=== PATIENT | female | born 1965 | race African-American/Black ===

== ENCOUNTER 2016-04-01 08:15 | Emergency (ER) | payer OTHER ==
[~2016-04-01] VITALS: Ht 149.9 cm; Wt 59.0 kg
[~2016-04-01 08:15] MED LIST: ACETAMINOPHEN-1 EAC1; ACETAMINOPHEN-1 EAC1 PO; AMOX TR-K CLV1 EAC3 PO; AMOXICILLIN 50500 M1 PO; AUGMENTIN 500-1 EACH PO; CARDURA2 MG PO; CARDURA4 MG PO; CARVEDILOL12.5 MG PO; CIPRO250 M1 PO; CIPRO250 MG PO; CIPROFLOXACIN500 M1 PO; DIFLUCAN150 MG PO; HUMALOG100 UNIT/1 SUBQ; HYDROCODON-ACE1 EAC7 PO; HYDROCODON-ACE1 EACH PO; INVANZ 1GM/NS 101 GM IV; KEFLEX500 MG PO; LANTUS SC; LANTUS SUBQ; LISINOPRIL20 MG PO; LISINOPRIL40 MG PO; LORTAB 5 MG/5001 TAB PO; MACROBID 100 M100 M1 PO; METOCLOPRAMIDE10 MG PO; NORCO 5-325 TA1 EACH PO; NOVOLIN R100 UNIT/3 IJ; NOVOLOG100 UNIT/1; ONDANSETRON HCL4 M2 PO; PAIN & FEVER325 MG PO; PHENERGAN 25 MG25 M1 PO; REGLAN 5 MG TAB5 M1 PO; RENVELA800 MG PO; SENSIPAR 30 MG30 M1 PO; SODIUM BICARBO650 M3 PO; TRAMADOL 50 MG50 MG PO; TUMS PO; ZESTRIL; ZESTRIL10 MG PO; ZOFRAN 4 MG ORAL4 M1 DIS; ZOFRAN ODT4 MG PO; [UNRECOGNIZED DRUG - CODE]
[2016-04-01] MEDS ORDERED: CARVEDILOL25 MG PO (08:26)
[2016-04-01] MEDS ORDERED: SENSIPAR 30 MG30 M1 PO (08:26)
[2016-04-01] MEDS ORDERED: IBUPROFEN 200200 M1 PO (08:28)
[2016-04-01 08:53] LABS: ABSOLUTE NEUTROPHILS 5.3 thou/uL (1.4-8.2); BASOPHILS 0.8 % (0.0-2.0); EOSINOPHILS 1.7 % (0.0-3.0); HEMATOCRIT 31.7 % (37.0-47.0); HEMOGLOBIN 10.6 gm/dL (12.0-15.0); LYMPHOCYTES 10.5 % (24.0-44.0); MCH 28.8 pg (26.0-34.0); MCHC 33.4 % (28.0-37.0); MCV 86.3 fL (80.0-100.0); MONOCYTES 10.5 % (1.0-8.0); PLATELET COUNT 138 thou/uL (150-400); POLYS 76.5 % (36.0-66.0); RBC 3.67 mil/uL (4.20-5.00); RDW 15.8 % (10.5-14.5)
[2016-04-01 09:01] LABS: CALCIUM 8.3 mg/dL (8.5-10.1); CREATININE 13.7 mg/dL (0.6-1.3); MANUAL DIFF NO
== END 2016-04-01 12:25 | disposition home or self-care (01) ==
LOC: ER 08:15
PROVIDERS: Emergency Medicine
DX: R11.2 Nausea with vomiting, unspecified (principal); E11.9 Type 2 diabetes mellitus without complications; I12.0 Hypertensive chronic kidney disease with stage 5 chronic kidney disease or end stage renal disease; N18.6 End stage renal disease; Z99.2 Dependence on renal dialysis; Z88.1 Allergy status to other antibiotic agents; Z88.8 Allergy status to other drugs, medicaments and biological substances

== ENCOUNTER 2017-07-03 13:49 | Emergency (ER) | payer OTHER ==
[~2017-07-03] VITALS: Ht 157.5 cm; Wt 68.0 kg
[~2017-07-03 13:49] MED LIST changes: +CARVEDILOL25 MG PO; +COREG12.5 MG PO; +FOSRENOL500 MG PO; +IBUPROFEN 200200 M1 PO; +KEFLEX500 M1 PO
[2017-07-03 15:48] LABS: ABSOLUTE NEUTROPHILS 5.9 thou/uL (1.4-8.2); BASOPHILS 0.7 % (0.0-2.0); EOSINOPHILS 2.7 % (0.0-3.0); HEMATOCRIT 37.1 % (37.0-47.0); HEMOGLOBIN 12.3 gm/dL (12.0-15.0); LYMPHOCYTES 16.7 % (24.0-44.0); MCHC 33.1 g/dL (28.0-37.0); MCV 84.6 fL (80.0-100.0); MONOCYTES 10.4 % (1.0-8.0); PLATELET COUNT 193 thou/uL (150-400); POLYS 69.5 % (36.0-66.0); RBC 4.38 mil/uL (4.20-5.00); WBC 8.5 thou/uL (4.0-11.0)
[2017-07-03 15:55] LABS: CALCIUM 8.4 mg/dL (8.5-10.1); CREATININE 7.4 mg/dL (0.6-1.0); POTASSIUM 4.1 mmol/L (3.5-5.1)
[2017-07-03] MEDS ORDERED: PHENERGAN 25 MG25 M1 PO (16:38)
[2017-07-05] MEDS ORDERED: RENVELA800 MG PO (11:53)
[2017-07-05] MEDS ORDERED: PRINIVIL20 MG PO (11:54)
[2017-07-05] MEDS ORDERED: COREG25 MG PO (11:54)
[2017-07-05] MEDS ORDERED: HUMALOG100 UNIT/1 SUBQ (11:54)
[2017-07-05] MEDS ORDERED: LANTUS100 UNIT/M SUBQ (11:54)
[2017-07-05] MEDS ORDERED: ARIMIDEX PO (18:41)
[2017-07-07] MEDS ORDERED: LANTUS100 UNIT/M SUBQ (10:40)
== END 2017-07-03 17:04 | disposition home or self-care (01) ==
LOC: ER 13:49
PROVIDERS: Physician Assistant
DX: R19.7 Diarrhea, unspecified (principal); E11.9 Type 2 diabetes mellitus without complications; I10 Essential (primary) hypertension; Z79.4 Long term (current) use of insulin; Z88.8 Allergy status to other drugs, medicaments and biological substances; Z88.2 Allergy status to sulfonamides

== ENCOUNTER 2017-07-09 11:56 | Emergency (ER) | payer OTHER ==
[~2017-07-09] VITALS: Ht 149.9 cm; Wt 80.3 kg
[~2017-07-09 11:56] MED LIST changes: +ARIMIDEX PO; +COREG25 MG PO; +LANTUS100 UNIT/M SUBQ; +PRINIVIL20 MG PO
[2017-07-09 13:15] LABS: BASOPHILS 0.8 % (0.0-2.0); EOSINOPHILS 2.6 % (0.0-3.0); HEMOGLOBIN 14.1 gm/dL (12.0-15.0); LYMPHOCYTES 16.1 % (24.0-44.0); MCH 27.4 pg (26.0-34.0); MCHC 32.9 g/dL (28.0-37.0); MCV 83.3 fL (80.0-100.0); MONOCYTES 9.8 % (1.0-8.0); PLATELET COUNT 175 thou/uL (150-400); POLYS 70.7 % (36.0-66.0); RBC 5.17 mil/uL (4.20-5.00); RDW 16.7 % (10.5-14.5); WBC 8.5 thou/uL (4.0-11.0)
[2017-07-09 13:24] LABS: ANION GAP 11 mmol/L (7-16); BUN 40 mg/dL (7-18); CALCIUM 8.9 mg/dL (8.5-10.1); CHLORIDE 100 mmol/L (98-107); CO2 29 mmol/L (21-32); GLUCOSE 134 mg/dL (74-106); POTASSIUM 4.3 mmol/L (3.5-5.1); SODIUM 140 mmol/L (136-145)
[2017-07-09 13:26] LABS: CREATININE 8.5 mg/dL (0.6-1.0)
[2017-07-09 13:32] LABS: ALBUMIN 3.7 g/dL (3.4-5.0); SGOT 16 U/L (15-37); SGPT 18 U/L (30-65); TOTAL BILIRUBIN 0.7 mg/dL (<0.1-1.0); TOTAL PROTEIN 8.7 g/dL (6.4-8.2); TROPONIN-I < 0.04 ng/mL (<0.06)
== END 2017-07-09 14:01 | disposition home or self-care (01) ==
LOC: ER 11:56
PROVIDERS: Nurse Practitioner
DX: E11.649 Type 2 diabetes mellitus with hypoglycemia without coma (principal); I10 Essential (primary) hypertension; Z99.2 Dependence on renal dialysis; Z88.2 Allergy status to sulfonamides

== ENCOUNTER 2018-04-06 03:15 | Inpatient (IN) | payer OTHER ==
[~2018-04-06] VITALS: Ht 149.9 cm; Wt 59.4 kg
--- NOTE | ~2018-04-06 | HC ---
[facility] [place] [address] CONSULTATION Name: TUYET CANO Room #: 352-P ADM IN M.R.#: [id number] Admission: 04/06/18 Attend Phys: Ottoniel Bradford MD Discharge: Date of : 67 Report #: [id number] THIS REPORT FOR: //name// CC: Ottoniel Johnson REASON FOR CONSULTATION: End-stage renal disease. REASON FOR PRESENTATION: Hypoglycemia. HISTORY OF PRESENT ILLNESS: A 52-year-old with past medical history of diabetes mellitus, hypertension, end-stage renal disease, status post cystectomy, ileal conduit. She is maintained on hemodialysis every Thursday, Thursday and Thursday. Her blood sugar was in the 300 range yesterday and she took 4 units of Levemir insulin 4 units of short-acting insulin. She then started to have issues with hypoglycemia. Blood sugar was reported to be 42. She is followed by an fisher weir and was asked recently to increase the dose of her insulin. She was hypothermic on her arrival. She also reported to persistent diarrhea in the last few days. She denies fever or chills. I am being consulted to manage her end-stage renal disease. PAST MEDICAL HISTORY: 1. End-stage renal disease, maintained on hemodialysis every Thursday, Thursday and Thursday. 2. Status post cystectomy. 3. Status post ileal conduit. 4. Diabetes mellitus. 5. Hypertension. 6. 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 7. AV fistula with multiple interventions. 8. Diabetic nephropathy and neuropathy. 9. Neurogenic bladder. 10. Remote history of . 11. Cholecystectomy. SOCIAL HISTORY: She is and lives with her . No drug or alcohol abuse. FAMILY HISTORY: Both parents and her sister have diabetes mellitus. MEDICATIONS: 1. Arimidex. 2. Carvedilol. 3. Lisinopril. 4. Lantus. 5. Lispro. [facility] [address] [place] [address] CONSULTATION Name: TUYET CANO Room #: 352-P [facility].#: [id number] Admission: 04/06/18 Attend Phys: Ottoniel Bradford MD Discharge: Date of : 67 Report #: [id number] ALLERGIES: NITROFURANTOIN. REVIEW OF SYSTEMS: GENERAL: Significant for weakness. CARDIOVASCULAR: Denies chest pain or palpitation. PULMONARY: No cough or hemoptysis. GASTROINTESTINAL: As per the history of present illness. MUSCULOSKELETAL: No back pain, no morning stiffness. PHYSICAL EXAMINATION: GENERAL: She is alert, oriented, in no apparent distress. VITAL SIGNS: Blood pressure is 106/81. Temperature was 34.4. HEAD AND NECK: No jugular venous distention. CHEST: Decreased air entry bilaterally. CARDIOVASCULAR: No rub detected. ABDOMEN: Soft with an ileal conduit. LOWER EXTREMITIES: No edema. LABORATORY DATA: Reviewed. Her blood sugar now is up to 210. Sodium is 139, potassium is 4.5, BUN is 31, creatinine is 6. ASSESSMENT: 1. Hypoglycemia. 2. End-stage renal disease. 3. Bleeding from the arteriovenous fistula. 4. The patient's blood sugar is now much better. She is off her insulin. PLAN: 1. We will arrange for the patient to have her usual hemodialysis tomorrow. 2. Given the excessive bleeding from her AV fistula, I will ask IR to evaluate her fistula. By: [id number] Gwen Javed MD /nt
[2018-04-06 03:18] VITALS: BP 121/47
[2018-04-06 03:45] LABS: RBC 4.69 mil/uL (4.20-5.00)
[2018-04-06 03:46] LABS: ABSOLUTE NEUTROPHILS 4.5 thou/uL (1.4-8.2); BASOPHILS 1.2 % (0.0-2.0); HEMATOCRIT 39.5 % (37.0-47.0); HEMOGLOBIN 13.1 gm/dL (12.0-15.0); LYMPHOCYTES 21.5 % (24.0-44.0); MCHC 33.3 g/dL (28.0-37.0); MCV 84.1 fL (80.0-100.0); MONOCYTES 9.6 % (1.0-8.0); PLATELET COUNT 162 thou/uL (150-400); POLYS 64.7 % (36.0-66.0); RDW 17.4 % (10.5-14.5)
[2018-04-06 03:52] LABS: CALCIUM 8.5 mg/dL (8.5-10.1); POTASSIUM 4.5 mmol/L (3.5-5.1)
[2018-04-06 04:08] LABS: POC CA IONIZED 3.2 mg/dL (4.5-5.3); POC CREATININE 5.2 mg/dL (0.6-1.3); POC HEMOGLOBIN 13.3 g/dL (12.0-15.0); POC POTASSIUM 4.3 mmol/L (3.5-5.1)
[2018-04-06 04:38] VITALS: BP 106/81
[2018-04-06 05:10] VITALS: BP 106/81
--- NOTE | 2018-04-06 05:55 | NUR ---
ADMISSION NOTE: PT IS AWAKE AND TALKATIVE. SHE NEEDS HER GLUCOSE MONITORING SYSTEM REPLACED. SHE IS CURRENTLY AWAITING IT TO COME BY MAIL THROUGH MEDICARE. SHE AND HER ARE VERY COOPERATIVE AND FRIENDLY. SHE EXPECTS TO GO HOME TOMORROW OR SOONER. HER TEMPERATURE AT TIME OF ADMISSION IS LOW THAN NORMAL. ALEYDA OLIVER PLACED ON PATIENT TO MAINTAIN TEMPERATURE. CAREPLAN STARTED, ORIENTED TO ROOM AND SURROUNDINGS.
[2018-04-06 08:00] VITALS: BP 114/52
[2018-04-06] MEDS ORDERED: ACETAMINOPHEN325 M1 PO (11:46)
[2018-04-06 12:03] VITALS: BP 160/79
[2018-04-06 12:27] VITALS: BP 160/79
--- NOTE | 2018-04-06 12:32 | NUR ---
ASSESSMENT: CM REVIEWED CHART AND MET WITH PATIENT AT THE BEDSIDE. PT IS ALERT AND ORIENTED X4. PT WAS ADMITTED DUE TO HYPOGLYCEMIC EPISODE. PT IS MEDICALLY STABLE FOR DISCHARGE TODAY. PT REPORTS SHE LIVES WITH HER AND IS FULLY INDEPENDENT. PT REPORTS HER MOTHER IN LAW IS PICKING HER UP FROM THE HOSPITAL. PT IS FULLY INDEPENDENT WITH ADLS. PT GO[facility] TO [facility] CHAIR[facility] 1115.. CM CONTACTED [facility] TO NOTIFY THEM OF DISCHARGE WELL FAXED THEM UPDATED PAPERWORK PER THEIR REQUEST TO [phone]. CM MET WITH PATIENT AT THE BEDSIDE AND DISCUSSED HOW ATTENDING IS WANTING PATIENT TO FOLLOW UP WITH HER UROLOGIST AT TODAY DUE TO PATIENTS ILEAL CONDUIT WITH SMALL EXTERNAL CATHERTER THAT WAS REMOVED WHEN SHE FELL AT HOME. PATIENTS STATES SHE HAS PLANS OF GOING TO AFTER HERE AND HAS ALREADY TALKED TO . PT REPORTS NO FURTHER NEEDS FROM [facility] AT THIS TIME.
--- NOTE | 2018-04-06 12:41 | NUR ---
ASSUMED PATIENT CARE AT 0700. A/O X4. VSS. BS STABLE. 272 AT 1200. NOTED ILEOCONDUIT CATHETER CAME OUT LAST NIGHT. CONTACTED IR THAT NOT ABLE TO INSERT NEW CATHETER. PATIENT IS IN STABLE CONDITION TO GO TO [facility] GET CATHETER PLACED. PRIGRESSING TOWARDS POC GOALS.
== END 2018-04-06 12:55 | disposition short-term general hospital (02) | DRG 637 ==
LOC: ER 03:15 → EROBS 04:34 → 3W 04:34
PROVIDERS: Emergency Medicine; ADMIT Internal Medicine
PROC: 5A1D70Z Performance of Urinary Filtration, Intermittent, Less than 6 Hours Per Day (ICD-10-PCS; principal; 2018-04-06)
DX: E11.649 Type 2 diabetes mellitus with hypoglycemia without coma (principal); G93.41 Metabolic encephalopathy; I12.0 Hypertensive chronic kidney disease with stage 5 chronic kidney disease or end stage renal disease; N18.6 End stage renal disease; E11.22 Type 2 diabetes mellitus with diabetic chronic kidney disease; T68.XXXA Hypothermia, initial encounter; E11.40 Type 2 diabetes mellitus with diabetic neuropathy, unspecified; N31.9 Neuromuscular dysfunction of bladder, unspecified; Z90.49 Acquired absence of other specified parts of digestive tract; Z99.2 Dependence on renal dialysis; Z98.891 History of uterine scar from previous surgery; Z79.4 Long term (current) use of insulin; Z79.899 Other long term (current) drug therapy; Z88.1 Allergy status to other antibiotic agents; Z88.2 Allergy status to sulfonamides; Z88.8 Allergy status to other drugs, medicaments and biological substances; Z83.3 Family history of diabetes mellitus
CPT/HCPCS: 10879

== ENCOUNTER 2018-07-22 09:49 | Emergency (ER) | payer OTHER ==
[~2018-07-22] VITALS: Ht 149.9 cm; Wt 59.0 kg
[~2018-07-22 09:49] MED LIST changes: +ACETAMINOPHEN325 M1 PO; +LIPITOR10 MG PO; +NOVOLOG100 UNIT/1 SUBQ; +TRESIBA100 UNIT/1 SUBQ
[2018-07-22] MEDS ORDERED: TRIAMCINOLONE A80 GM TOP (10:30)
[2018-07-22] MEDS ORDERED: ZONALON30 GM TOP (10:30)
[2018-07-22] MEDS ORDERED: FAMOTIDINE 10 M10 MG PO (10:30)
[2018-07-22 10:40] VITALS: BP 171/107
== END 2018-07-22 12:09 | disposition home or self-care (01) ==
LOC: ER 09:49
DX: L25.9 Unspecified contact dermatitis, unspecified cause (principal); I48.2 Chronic atrial fibrillation; M81.0 Age-related osteoporosis without current pathological fracture; I10 Essential (primary) hypertension; E11.9 Type 2 diabetes mellitus without complications; Z99.2 Dependence on renal dialysis; Z98.890 Other specified postprocedural states; Z87.440 Personal history of urinary (tract) infections; Z88.1 Allergy status to other antibiotic agents; Z88.2 Allergy status to sulfonamides; Z88.8 Allergy status to other drugs, medicaments and biological substances; Z79.4 Long term (current) use of insulin